=== PATIENT | female | born 1940 | race Caucasian/White ===

== ENCOUNTER → 2016-02-29 | Outpatient (CLI) | payer OTHER, MEDICARE ==
--- NOTE | 2016-02-29 18:48 | DX ---
Chest, Two Views February 29, 2016 at 1633 hours History: Surgical preop, R06.02, preop for knee surgery. Comparison: October 2014. Findings: Cardiac silhouette is within normal range. Calcified granulomata, especially left upper l obe. Cervical fusion plate and screws. Tortuous aorta. Degenerative lower thoracic spine. Minimal scarring in the lingula, similar to the previous study. No pneumonia, congestive heart failure, ple ural effusion, or pneumothorax. Impressions 1. Tortuous thoracic aorta. 2. Calcified granulomata. 3. No acute pulmonary disease.
== END ==
LOC: BRMIMAGING 16:21
PROVIDERS: ATTEND Family Medicine
DX: Z01.818 Encounter for other preprocedural examination (principal); Q25.46 Tortuous aortic arch; J98.4 Other disorders of lung
CPT/HCPCS: 71020-PO

== ENCOUNTER → 2016-06-29 | Outpatient (CLI) | payer OTHER, MEDICARE | LOC: BRMIMAGING 14:45 | DX: Z12.31 Encounter for screening mammogram for malignant neoplasm of breast (principal) | CPT/HCPCS: G0202 ==

== ENCOUNTER → 2017-07-06 | Outpatient (CLI) | payer OTHER, MEDICARE | LOC: BRMIMAGING 09:32 | PROVIDERS: ATTEND Family Medicine | DX: N63.11 Unspecified lump in the right breast, upper outer quadrant (principal) | CPT/HCPCS: 76641-PO ==